=== PATIENT | female | born 1965 | race Caucasian/White ===

== ENCOUNTER 2017-05-06 09:51 | Emergency (ER) | payer MEDICAID ==
[2017-05-06] MEDS: IBUPROFEN 600 MG TAB PO (12:22)
== END 2017-05-06 15:05 | disposition home or self-care (01) ==
LOC: FTE 09:51
DX: L72.3 Sebaceous cyst (principal); E11.9 Type 2 diabetes mellitus without complications
CPT/HCPCS: 10160; 99283-25

== ENCOUNTER 2017-05-09 07:36 | Emergency (ER) | payer MEDICAID | END 2017-05-09 09:54 | disposition home or self-care (01) | LOC: FTE 07:36 | DX: Z48.01 Encounter for change or removal of surgical wound dressing (principal); E11.9 Type 2 diabetes mellitus without complications | CPT/HCPCS: 99283; Z7502 ==

== ENCOUNTER 2017-09-09 17:43 | Emergency (ER) | payer MEDICAID | END 2017-09-09 19:40 | disposition home or self-care (01) | LOC: FTE 17:43 | DX: L72.0 Epidermal cyst (principal); E11.9 Type 2 diabetes mellitus without complications | CPT/HCPCS: 10160; 99283-25 ==